=== PATIENT | male | born 1940 | race Caucasian/White ===

== ENCOUNTER 2018-10-06 11:13 | Observation (INO) | payer MEDICARE, BC ==
[2018-10-06] MEDS ORDERED: NS 0.9% 1000 ML** 1,000 ML IV ONE (11:29)
[2018-10-06] MEDS ORDERED: Diltiazem IV push/loading dose 5 MG/ML 5 ML vial (25 mg) IV PUSH ONE (11:29)
--- NOTE | 2018-10-06 11:31 | ED ---
Palpitations / Dysrhythmia - HPI Summary HPI Summary: Patient is a 78 y/o M presenting to ED with complaints of tachycardia. He was seen at [facility] by Dr. Bruno this morning for liver issues. LFTs are reported to have been normal. An EKG was done and the patient was found to be tachycardic. He notes that he had a similar episode of tachycardia around 1.5 months ago which had spontaneously resolved. 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 Patient states that he has not been taking any blood thinners. He also endorses experiencing SOB and dizziness but denies chest pain. , who is present in the room, states that the patient had a fall and head injury at back of right side four days ago. PMHx of HTN, white cell carcinoma. PSHx of mitral valve repair, FMHx of cardiac disease, patient drinks a cocktail daily, denies substance usage, he is a former smoker. Nothing is noted to aggravate/alleviate Sx. Home medications and allergies are reviewed. 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 - Onset/Duration: Sudden Onset, Lasting Hours, Lasting Weeks - patient had a prior episode around 1.5 months ago, Still Present Character: Fast Aggravating: Nothing Alleviating: Nothing Associated Signs & Symptoms: Dizzy, Shortness of Breath - Allergy/Home Medications Allergies/Adverse Reactions: Allergies Allergy/AdvReac Type Severity Reaction Status Date / Time haloperidol [From Haldol] Allergy Unknown Verified 10/06/18 11:18 Reaction Details Penicillins Allergy Unknown Verified 10/06/18 11:18 Reaction Details Home Medications: Home Medications Alfuzosin ER (NF) [Uroxatral (NF)] 10 mg PO BEDTIME 10/06/18 [History Confirmed 10/06/18] Ezetimibe TAB* [Zetia TAB*] 10 mg PO DAILY 10/06/18 [History Confirmed 10/06/18] HydroxyUREA CAP* [Hydrea CAP*] 500 mg PO MOTUWETHFR 10/06/18 [History Confirmed 10/06/18] Isosorbide Mononitrate ER TAB* [Imdur ER TAB*] 15 mg PO DAILY 10/06/18 [History Confirmed 10/06/18] Losartan TAB* [Cozaar TAB*] 25 mg PO DAILY 10/06/18 [History Confirmed 10/06/18] Silica Caps 1 cap PO DAILY 10/06/18 [History Confirmed 10/06/18] Vit A/Vit C/Vit E/Zinc/Copper [Preservision Areds Softgel] 1 cap PO BID [History Confirmed 10/06/18] levETIRAcetam [Levetiracetam ER] 2,000 mg PO DAILY 10/06/18 [History Confirmed 10/06/18] PMH/Surg Hx/FS Hx/Imm Hx Endocrine/Hematology History: Denies: Hx Diabetes Cardiovascular History: Reports: Hx Hypertension Denies: Hx Congestive Heart Failure, Hx Pacemaker/ICD, Other Cardiovascular Problems/Disorders Sensory History: Denies: Hx Hearing Aid Psychiatric History: Denies: Hx Panic Disorder - Cancer History Cancer Type, Location and Year: WHITE CELL CARCINOMA - Surgical History Surgery Procedure, Year, and Place: MITRAL VALVE. BOIL REMOVED FROM BILATERAL UNDER ARMS Infectious Disease History: No Infectious Disease History: Denies: Traveled Outside the [place] in Last 30 Days - Family History Known Family History: Positive: Cardiac Disease - Social History Alcohol Use: Daily Substance Use Type: Reports: None Hx Tobacco Use: Yes - OVER 30 YRS AGO Smoking Status (MU): Former Smoker Review of Systems Positive: Palpitations. Negative: Chest Pain Positive: Shortness Of Breath Neurological: Other - POSITIVE - DIZZINESS; HEAD INJURY FOUR DAYS AGO All Other Systems Reviewed And Are Negative: Yes Physical Exam - Summary Physical Exam Summary: VITAL SIGNS: Reviewed. GENERAL: Patient is a well-developed and nourished male who is lying comfortable in the stretcher. Patient is not in any acute respiratory distress. HEAD AND FACE: No signs of trauma. No ecchymosis, hematomas or skull depressions. No sinus tenderness. EYES: PERRLA, EOMI x 2, No injected conjunctiva, no nystagmus. EARS: Hearing grossly intact. Ear canals and tympanic membranes are within normal limits. MOUTH: Oropharynx within normal limits. NECK: Supple, trachea is midline, no adenopathy, no JVD, no carotid bruit, no c- spine tenderness, neck with full ROM. CHEST: Symmetric, no tenderness at palpation LUNGS: Clear to auscultation bilaterally. No wheezing or crackles. CVS: Tachycardic, irregularly irregular, S1 and S2 present, no murmurs or gallops appreciated. ABDOMEN: Soft, non-tender. No signs of distention. No rebound no guarding, and no masses palpated. Bowel sounds are normal. EXTREMITIES: FROM in all major joints, no edema, no cyanosis or clubbing. NEURO: Alert and oriented x 3. No acute neurological deficits. Speech is normal and follows commands. SKIN: Dry and warm Triage Information Reviewed: Yes Vital Signs On Initial Exam: Initial Vitals Temp Pulse Resp BP Pulse Ox 97.2 F 156 18 81/48 98 10/06/18 11:16 10/06/18 11:16 10/06/18 11:16 10/06/18 11:16 10/06/18 11:16 Vital Signs Reviewed: Yes Diagnostics - Vital Signs Vital Signs Temp Pulse Resp BP Pulse Ox 10/06/18 11:16 97.2 F 156 18 81/48 98 - Laboratory Result Diagrams: 10/07/18 05:40 10/07/18 05:40 Lab Statement: Any lab studies that have been ordered have been reviewed, and results considered in the medical decision making process. - Radiology CXR Radiology Interpretation Completed By: Radiologist Summary of Radiographic Findings: IMPRESSION: NO ACTIVE CARDIOPULMONARY DISEASE. THIS REPORT WAS REVIEWED BY DR. BRANCH. - EKG 1121 Cardiac Rate: Other Rate - afib with rate of 150 BPM EKG Rhythm: Atrial Fibrillation Summary of EKG Findings: EKG showed afib with rate of 150 BPM, RVR, inverted T waves in V5, V6. 1302 Cardiac Rate: NL - rate of 82 BPM EKG Rhythm: Sinus Rhythm Summary of EKG Findings: EKG showed sinus rhythm with rate of 83 BPM, no ST elevation, LBBB. Course/Dx - Course Assessment/Plan: This patient is a 78-year-old male who presents to the emergency department with a chief complaint of having palpitations, shortness of breath and dizziness. He reports that he went to see Dr. 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 Patient has no history of atrial fibrillation. He also reports that in the last couple weeks the patient has been having episodes where he his heart rate increases and becomes dizzy and usually resolves within minutes. Initially the patient was placed in a monitoring engineer, noticed that the patient had rate is increased therefore we decided to do an EKG. EKG shows an atrial fibrillation with RVR. We obtained an IV access and we gave the patient fluids since the blood pressure was on the low side. After fluids, blood pressure increased and the patient was given Cardizem 10 mg IV. The patient continues to have tachycardia, therefore the patient was placed in a Cardizem drip with IV fluids. Test results without any significant abnormality except for WBCs of 12.9, hemoglobin 12, hematocrit 38, platelets of 437. INR is 1.29 PTT is 35. Glucose 142, MB 349. Chest x-ray impression: No active cardiopulmonary disease. At this point the patient is more stable. The heart rate is 119 bpm. I discuss my physical exam, findings and test results with Dr. Soria from the hospitalist services and she agrees to admit patient to her services. Patient is hemodynamically stable alert and oriented x 3. - Diagnoses Provider Diagnoses: Atrial fibrillation with RVR - Physician Notifications Discussed Care Of Patient With: Keira Caldera Time Discussed With Above Provider: 12:33 Instructed by Provider To: Other - Patient's case was discussed with Dr. Caldera , Dr. Caldera accepts for admission. - Critical Care Time Critical Care Time: 75-104 min Discharge - Sign-Out/Discharge Documenting (check all that apply): Patient Departure - admit Patient Received Moderate/Deep Sedation with Procedure: No - Discharge Plan Condition: Stable Disposition: ADMITTED TO [facility] - Billing Disposition and Condition Condition: STABLE Disposition: Admitted to [facility] - Attestation Statements Document Initiated by Sarjo: Yes Documenting Scribe: CLINT ESTRADA Provider For Whom Saroj is Documenting (Include Credential): SANTA BRANCH MD Scribe Attestation: I, CLINT ESTRADA, scribed for SANTA BRANCH MD on 10/07/18 at 1051. Scribe Documentation Reviewed: Yes Provider Attestation: The documentation as recorded by the CLINT dean accurately reflects the service I personally performed and the decisions made by me, SANTA BRANCH MD Status of Scribe Document: Viewed
[2018-10-06 12:03] LABS: Activated Partial Thrombo Time 35.3 seconds (26.0-36.3); Hematocrit 38 % (42-52); INR 1.29 (0.82-1.09); Mean Corpuscular HGB Conc 32 g/dL (31-36); Mean Corpuscular Hemoglobin 29 pg (27-31); Mean Corpuscular Volume 92 fL (80-94); Platelet Count 437 10^3/uL (150-450); Red Blood Count 4.12 10^6 /uL (4.18-5.48); Red Cell Distribution Width 18 % (10.5-15); White Blood Count 12.9 10^3/uL (3.5-10.8)
[2018-10-06] MEDS ORDERED: Diltiazem IV VIAL* 125 MG in NS 0.9% 100 ML* 100 ML IVPB ONE (12:03)
[2018-10-06 12:07] LABS: Albumin/Globulin Ratio 1.5 (1-3); Calcium 9.3 mg/dL (8.6-10.3); EGFR African American 78.3 (>60); EGFR Non-African American 64.7 (>60); Globulin 2.7 g/dL (2-4); Magnesium 2.1 mg/dL (1.9-2.7); Potassium 3.7 mmol/L (3.5-5.0); Total Bilirubin 0.6 mg/dL (0.2-1.0); Total Protein 6.7 g/dL (6.4-8.9)
[2018-10-06 12:09] LABS: Troponin I 0.01 ng/mL (<0.04)
[2018-10-06 12:12] LABS: CKMB ng/mL 1.4 ng/mL (0.6-6.3)
[2018-10-06 12:41] LABS: ABS Neutrophils 4.1 10^3/ul (1.5-7.7); TSH (Thyroid Stimulating Horm) 1.37 mcIU/mL (0.34-5.60)
[2018-10-06] MEDS ORDERED: Metoprolol Succinate XL TAB* 50 MG PO ONE (13:27)
[2018-10-06] MEDS ORDERED: Acetaminophen TAB* 325 MG PO PRN (13:28)
[2018-10-06] MEDS ORDERED: Ondansetron INJ* 2 MG/ML VIAL IV PRN (13:28)
[2018-10-06] MEDS: HydroxyUREA CAP* 500 MG CAP PO SCH (15:43)
[2018-10-06] MEDS: Enoxaparin(*) 60 MG/0.6 ML SYR SUBCUT SCH (15:43)
[2018-10-06] MEDS ORDERED: Warfarin TAB(*) 5 MG PO SCH (17:00)
--- NOTE | 2018-10-06 17:17 | HP ---
CC: Dr. Riggs, [place]; Dr. Lei Osullivan; Dr. Alex Bruno * ADMISSION HISTORY AND PHYSICAL: DATE OF ADMISSION: 10/06/18 PRIMARY CARE PROVIDER: Dr. Riggs in [place]. MY ATTENDING WHILE IN THE HOSPITAL: Dr. Keira Caldera.* (DICTATED BY AVEL CONTEH) OUTPATIENT GLASS CURVATURE GAUGER: Dr. Lei Osullivan. OUTPATIENT CASTING MACHINE SERVICE OPERATOR/ONCOLOGIST: Dr. Alex Bruno. CHIEF COMPLAINT: Tachycardia. HISTORY OF PRESENT ILLNESS: Mr. 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 He then had to have a large bowel movement on the subsequent day requiring straining and strenuous activity afterwards and after that strenuous activity, the patient felt lightheaded, passed out, hit his head on the cabinet, woke up, was feeling okay; did not feel palpitations, chest pain, shortness of breath. The patient did have prodromal symptoms. The patient has not passed out in the recent past. The patient did not seek medical attention for this. The patient, however, did go to a routine appointment with his core sucker/oncologist today to discuss his CML treatment and was found to have a heart rate in the 140s with irregular rhythm. The patient at that time did feel some palpitations and felt somewhat dizzy. The patient had an episode approximately 6 weeks ago where he was woken from sleep, checked his pulse and it was in the 120s. He monitored it and it subsided on its own. The patient discussed this with his rn homecare and it was discussed that he would start anticoagulation; however, this was not started due to the lack of confirmation of AFib and his other comorbidities. The patient does not remember when the last time he had an echocardiogram for his valve replacement. The patient had 1 episode of bright red blood per rectum approximately 2 months ago related to hemorrhoids. The patient did have a subcutaneous blood clot about a month ago in his arm related to a bug bite. The patient in the emergency department was found to have a heart rate in the 160s, given diltiazem push bringing his heart rate down to the 120s. The patient's heart rate then went back up to 160s and before a diltiazem drip could be started, the patient spontaneously converted. Before this happened, the patient was having some slight shortness of breath not at rest, mainly with exertion while his heart rate was high and denied chest pain, had palpitations, denied lightheadedness. The patient has no functional limitations at baseline. The patient has no swelling in his legs, no difficulty breathing when lying flat, no nocturia. The patient had several recent car trips. He is on aspirin 325 mg daily. The patient did have a stress test in [place], which showed a possible region of remote ischemia consistent with missed heart attack. Due to concern for new-onset AFib, we were asked to evaluate the patient for admission to the hospital. 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 MEDICATIONS: 1. Alfuzosin 10 mg p.o. at bedtime. 2. 1 cap p.o. daily. 3. Aspirin 325 mg p.o. daily. 4. PreserVision 1 tab p.o. b.i.d. 5. Zetia 10 mg p.o. daily. 6. Hydroxyurea 500 mg p.o. Saturday, Saturday, Saturday, Saturday. 7. Imdur 15 mg p.o. daily. 8. Losartan 25 mg p.o. daily. 9. Keppra 2000 mg p.o. daily. ALLERGIES: HALDOL, PENICILLIN. FAMILY HISTORY: The patient's father of heart disease. The patient's mother young, unknown cause. The patient's brother recently of intraoperative complications. The patient had a brother who of dementia and another brother of an AK. SOCIAL HISTORY: The patient smoked for 15 years from 1959 to 1973 approximately a pack a day. The patient drinks approximately 2 beers daily. The patient denies illicit drug use. 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 The patient is and has 2 children. The patient's surrogate decision maker will be his son, Alex Mackenzie. REVIEW OF SYSTEMS: A 14-point review of systems was reviewed and is negative except as above in the HPI. PHYSICAL EXAMINATION GENERAL: The patient is a 78-year-old male, who appears stated age and sitting comfortably in bed, in no acute distress. VITAL SIGNS: At the time of evaluation, temperature 97.2, pulse rate 83, respiratory rate 17, oxygen saturation 98% on room air, blood pressure 112/56. HEENT: Head: Normocephalic, atraumatic. Sclerae anicteric. No conjunctival injection. Nasal mucosa moist. Oral mucosa moist. No pharyngeal erythema, discharge, or exudate. NECK: Supple, nontender. No lymphadenopathy. No carotid bruits auscultated. No JVD. RESPIRATORY: Clear to auscultation bilaterally. No wheezes, rales, or rhonchi. Good air exchange bilaterally. CARDIAC: Tachycardic. Grade 3/6 holosystolic murmur heard best at the apex. Irregular rate and rhythm. Pulses are 2+ in the bilateral dorsalis pedis, posterior tibialis, and radial areas. No bilateral lower extremity edema noted. ABDOMEN: Soft, nontender, nondistended. Bowel sounds present and normoactive in all 4 quadrants. No hepatosplenomegaly. No abdominal bruits auscultated. No hepatojugular reflux. GENITOURINARY: No suprapubic or CVA tenderness. NEURO: Cranial nerves II through XII intact. No focal deficits. Alert and oriented x3. PSYCHIATRIC: Pleasant and cooperative. SKIN: Clean, dry, and intact. No rash. Large well-healed scar on the thorax consistent with prior valve replacement. DIAGNOSTIC STUDIES/LAB DATA: White blood cell count 12.9, hemoglobin 12.0, platelet count 437. INR 1.29, APTT 35.3. Sodium 138, potassium 3.7, chloride 103, carbon dioxide 26, anion gap 9, BUN 22, creatinine 1.1, glucose 152, lactic acid 1.6, calcium 9.3, magnesium 2.1. Bilirubin 0.6, AST 30, ALT 35, alkaline phosphatase 79. Creatine kinase 42, CK-MB 1.4. Troponin I 0.01. BNP 349. Protein 6.7, albumin 4.0, globulin 2.7. TSH 1.37. Studies: Chest x-ray read as no active cardiopulmonary disease. EKG shows atrial fibrillation, rate of 150, QTc of 481, ST segment depressions with T-wave inversions in the lateral leads, left bundle branch block pattern. Compared to previous exam, there are numerous significant changes including development of left bundle branch block, atrial fibrillation replacing previously normal sinus rhythm. Repeat EKG shows continued atrial fibrillation , rate of 150, persistent ST and T-wave changes. Repeat EKG shows normal sinus rhythm, persistent T-wave inversions in V5 and V6, left ventricular hypertrophy , improvement in left bundle branch block pattern, possible left atrial enlargement. ASSESSMENT AND PLAN: Impression: Mr. Mackenzie is a 78-year-old male with a complex past medical history significant for mitral regurgitation, status post replacement; recent history of chronic myeloid leukemia; remote history of endocarditis; history of seizures; transient ischemic attack; and hypertension, who presents to the emergency department with rapid atrial fibrillation and a recent history of syncope, who was found to be in rapid atrial fibrillation, who spontaneously converted after 1 dose of diltiazem. The patient will be admitted to the hospital for rate control, echocardiogram, cardiology consultation, and initiation of anticoagulation. 1. Paroxysmal atrial fibrillation. The patient is currently in normal sinus rhythm. The patient was symptomatic from his atrial fibrillation. It is unclear whether his syncope was related to atrial fibrillation. He has episodes of tachycardia going back approximately 6 weeks. The patient is not on any rate controlling agents. The patient will be started on metoprolol succinate 25 mg p.o. daily. This can be uptitrated in case he continues to go in and out of atrial fibrillation with rapid rates and this should help slightly with rhythm control as well. This will be used in preference to diltiazem due to the patient's probable history of coronary artery disease. The patient will have an echocardiogram to assess functioning of his mitral valve. The patient is not a candidate for NOAC therapy due to this being possibly related to his mitral valve replacement. The patient will be started on Lovenox to bridge to Coumadin. The patient's case has been discussed with Dr. Lei Osullivan of Cardiology, who will see the patient in consultation. 2. Chronic myeloid leukemia. Continue the patient's hydroxyurea. The patient' s blood counts are not markedly abnormal and consistent with chronic myeloid leukemia. 3. History of coronary artery disease. The patient has a reported history of abnormal stress test indicating possible history of remote myocardial infarction. Continue the patient's Zetia and aspirin. It is unclear why the patient is not on statin therapy. We will defer this decision to the patient's rn homecare outpatient. Continue the patient's Imdur. 4. Hypertension. The patient is currently normotensive. The patient was hypotensive in the setting of tachycardia. Monitor the patient's blood pressure closely with initiation of rate control medications. 5. History of transient ischemic attack. This makes the patient high risk for thromboembolism. The patient's current CHADS-VASc score is 5. The patient will be full anticoagulated with Lovenox and bridged with Coumadin. 6. DVT prophylaxis: The patient is on full-dose Lovenox. 7. FEN: The patient will have a heart-healthy diet, caffeine okay. The patient does not need fluids at this time. 8. Disposition: The patient is admitted to observation to the hospital. TIME SPENT: Approximately 75 minutes was spent on the admission of this patient , 30 of which was spent [id number] with the patient obtaining history and physical and discussing treatment plan. This plan was discussed with my attending, Dr. Keira Caldera, and she is in agreement. AVEL CONTEH [id number]/[facility] #: [id number] HANG
[2018-10-06] MEDS ORDERED: Alfuzosin ER (NF) 10 MG TAB.ER PO SCH (21:00)
--- NOTE | 2018-10-07 00:04 | CONS ---
CARDIOLOGY CONSULTATION: DATE OF CONSULT: 10/06/18 INDICATION FOR CONSULTATION: Atrial fibrillation. HISTORY OF PRESENT ILLNESS: The patient is a 78-year-old gentleman well known to me from past consultations. He is a gentleman with a history of mitral valve endocarditis back in 2009. At that time, he underwent surgery and had a mitral valve replacement with #[address] bioprosthetic valve. The patient has been doing very well since then. The patient does have a history of CML. The patient moved to [place] about a year ago. He was up here visiting friends when he started noticing shortness of breath and palpitations. This started last , when he was out in the golf [place]. He continued throughout the weekend. He contacted Dr. Bruno from Oncology this morning and he was seen at Dr. Bruno's office. At that time, his EKG showed atrial fibrillation with rapid ventricular response. He was transferred to the emergency room. On arrival to the emergency room, he was in AFib with rapid ventricular response. He subsequently converted to normal sinus rhythm around 1 o'clock in the afternoon. On speaking with the patient right now, he has no specific complaints. He denies any chest pain or shortness of breath. No orthopnea or PND. No palpitations. No lightheadedness, dizziness or syncope. OUTPATIENT MEDICATIONS: 1. Losartan 25 mg a day. 2. Imdur 30 mg a day. 3. Hydroxyurea 500 mg daily. 4. Zetia 10 mg a day. 5. Aspirin 325 a day. 6. Uroxatral 10 mg a day. 7. Levitra 500 mg as needed. ALLERGIES: ALLOPURINOL and PENICILLIN. FAMILY HISTORY: Noncontributory. 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 Denies tobacco or alcohol use. He does get exercise on a regular basis. REVIEW OF SYSTEMS: Negative for fevers and chills. Negative for changes in bowel or bladder habits. Negative for changes in weight. Other 12-point review was unremarkable. PHYSICAL EXAM: Height is 5 feet 6 inches, weight 131 pounds, temperature 97, heart rate is 70, and blood pressure 128/41, respiratory rate is 20. Oxygen saturation 98% on room air. Sclerae anicteric. Oropharynx is pink without erythema. Carotids are 2+ without bruits. JVD is normal. Thyroid is normal. Cardiac Exam: S1 and S2 with a soft 1/6 systolic ejection murmur. No diastolic murmur. PMI is normal. Lungs are clear to auscultation bilaterally. There is no dullness to percussion. Abdomen is soft, nontender, and nondistended with normoactive bowel sounds. Extremities show no edema. He has 2 + pulses dorsalis pedis pulses throughout. The patient is awake, alert and oriented. He moves all 4 extremities equally. DIAGNOSTIC STUDIES/LAB DATA: CBC is within normal limits except for a white count of 12.9. Chemistries are within normal limits. BUN and creatinine are normal AST and ALT are normal. Troponins are negative. TSH 1.3. An echocardiogram today showed normal LV size with systolic function. His bioprosthetic mitral valve was functioning normally. He does have a moderate aortic regurgitation. This was essentially unchanged from his echocardiogram in 2013. IMPRESSION: This is a 78-year-old gentleman with a history of bioprosthetic mitral valve back in 2009. He was admitted to the hospital with atrial fibrillation. Again, he may have started with atrial fibrillation back on . The patient was seen in the emergency room. He was given IV Cardizem and converted to normal sinus rhythm. The patient states he had 1 episode of atrial fibrillation about 6 weeks ago that lasted about 2 hours. The patient has atrial fibrillation, not to be unexpected with the patient with a mitral valve replacement. My recommendation, the patient to be started on long-term anticoagulation because of his high risk of recurrent atrial fibrillation. Because of his mitral valve replacement, the patient should be placed on Coumadin. The patient will be given low dose beta-love, metoprolol 25 mg b.i.d. The patient does have a deputy controller in [place] now. He can follow up with that deputy controller and consider changing to anti-arrhythmic medication if it is necessary. [id number]/[facility] #: [id number] MTDD
[2018-10-07 04:18] LABS: Urine Appearance Cloudy; Urine Bacteria Absent (Absent); Urine Bilirubin Negative (Negative); Urine Blood Negative (Negative); Urine Color Yellow; Urine Glucose Negative (Negative); Urine Ketones Negative (Negative); Urine Nitrite Negative (Negative); Urine Protein 1+(30 mg/dL) (Negative); Urine Red Blood Cell Absent (Absent); Urine Specific Gravity 1.021 (1.010-1.030); Urine Urobilinogen Negative (Negative); Urine White Blood Cell Trace(0-5/hpf) (Absent)
[2018-10-07] MEDS ORDERED: Enoxaparin(*) 60 MG/0.6 ML SYR SUBCUT SCH (04:30)
[2018-10-07] MEDS: Enoxaparin(*) 60 MG/0.6 ML SYR SUBCUT SCH (05:10)
[2018-10-07 06:10] LABS: Hematocrit 34 % (42-52); Hemoglobin 10.8 g/dL (14.0-18.0); Mean Corpuscular HGB Conc 32 g/dL (31-36); Mean Corpuscular Hemoglobin 29 pg (27-31); Mean Corpuscular Volume 92 fL (80-94); Mean Platelet Volume 11.7 fL (7.4-10.4); Platelet Count 357 10^3/uL (150-450); Red Cell Distribution Width 17 % (10.5-15); White Blood Count 10.2 10^3/uL (3.5-10.8)
[2018-10-07 06:18] LABS: INR 1.53 (0.82-1.09)
[2018-10-07 06:33] LABS: BUN/Creatinine Ratio 22.5 (8-20); Calcium 8.6 mg/dL (8.6-10.3); EGFR Non-African American 82.7 (>60); Magnesium 1.9 mg/dL (1.9-2.7); Potassium 3.6 mmol/L (3.5-5.0)
[2018-10-07 06:43] LABS: ABS Neutrophils 2.1 10^3/ul (1.5-7.7); ABS Neutrophils 3.4 10^3/ul (1.5-7.7)
--- NOTE | 2018-10-07 08:52 | ECHO ---
*[facility]* [place] [address] Fax #: [phone] Transthoracic Echocardiogram Patient: Avril, Height: 66 in / Angelo Worthington 167.6 cm : 1940 Weight: 134.7 lb / Study Date: 10/06/2018 61.2 kg Age: 78 BP: 119 / 52 Gender: M BMI/BSA: 21.8 kg/m^2 HR: 68 bpm / 1.69 m^2 *Senior Interactive Developer: * Melanie Dutton [facility] RN *Referring Physician: * Foreign Hernández *Reading Physician: * Lei Osullivan MD Indications: Abnormal EKG. 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 Risk factors: Former tobacco use. Hypertension. Conclusions Summary: 1. Left ventricle: The cavity size is mildly dilated. Wall thickness is mildly increased. Systolic function is at the lower limits of normal. The estimated ejection fraction is 50-55%. There are no regional wall motion abnormalities. 2. Left atrium: The atrium is moderately to severely dilated. 3. Mitral valve: There is a porcine bioprosthetic mitral valve replacement. Normal function There is trace regurgitation. 4. Aortic valve: The annulus is mildly calcified. The valve is trileaflet. The leaflets are mildly thickened. There is moderate regurgitation. 5. Tricuspid valve: There is trivial regurgitation. 6. Pulmonic valve: There is mild regurgitation. 7. Pericardium, extracardiac: There is no pericardial effusion. 8. Impressions: Unchanged from the study of 11/24/2013. Study data: Transthoracic echocardiogram. Procedure: Transthoracic echocardiography was performed. Image quality was good. Complete 2D, spectral Doppler, and color flow Doppler. Patient status: Inpatient. Patient room number: 443-02. Comparison is made to the study of 11/24/2013. Rhythm: Normal sinus rhythm with PAC's. Findings Left ventricle: The cavity size is mildly dilated. Wall thickness is mildly increased. Systolic function is at the lower limits of normal. The estimated ejection fraction is 50-55%. There are no regional wall motion abnormalities. Doppler parameters are consistent with abnormal left ventricular relaxation (grade 1 diastolic dysfunction). Right ventricle: The cavity size is normal. Systolic function is normal. Left atrium: The atrium is moderately to severely dilated. Right atrium: The atrium is moderately to severely dilated. Mitral valve: There is a porcine bioprosthetic mitral valve replacement. There is tracel regurgitation. The valve area is 1.4 cm^2. The valve area index is 0.82 cm^2/m^2. The valve area by pressure half-time is 1.2 cm^2. The valve area index by pressure half-time is 0.7 cm^2/m^2. The valve area (LVOT continuity) is 1.4 cm^2. The valve area index (LVOT continuity) is 0.82 cm^2/m^2. The mean diastolic gradient is 10.0 mm Hg. The peak diastolic gradient is 13.0 mm Hg. Aortic valve: The annulus is mildly calcified. The valve is trileaflet. The leaflets are mildly thickened. The findings are consistent with very mild stenosis. There is moderate regurgitation. The LVOT to aortic valve VTI ratio is 0.77. The valve area by the velocity-time integral method is 2.40 cm^2. The valve area index by the velocity-time integral method is 1.42 cm^2/m^2. The ratio of LVOT to aortic valve peak velocity is 0.74. The valve area by the peak velocity method is 2.30 cm^2. The valve area index by the peak velocity method is 1.36 cm^2/m^2. The ratio of LVOT to aortic valve mean velocity is 0.68. The valve area by the mean velocity method is 2.1 cm^2. The valve area index by the mean velocity method is 1.26 cm^2/m^2. The mean systolic gradient is 9.0 mm Hg. The peak systolic gradient is 15.0 mm Hg. Tricuspid valve: The valve is structurally normal. There is no evidence of stenosis. There is trivial regurgitation. Pulmonic valve: The valve is structurally normal. There is no evidence of stenosis. There is mild regurgitation. The peak systolic gradient is 1.0 mm Hg. Aorta: Aortic root: The aortic root is not dilated. Ascending aorta: The ascending aorta is mildly dilated. Aortic arch: The aortic arch is not visualized. Pericardium: There is no pericardial effusion. Pulmonary arteries: The main pulmonary artery is normal-sized. Systemic veins: Inferior vena cava: The vessel is normal in size. The respirophasic diameter changes are in the normal range (>= 50%). Measurements Left ventricle Value Ref Right atrium Value Ref IMER, LAX 5.8 cm 4.2 - 5.8 ML dim, ES, A4C (H) 5.2 cm 2.6 - 4.4 ESD, LAX (H) 5.0 cm 2.5 - 4.0 SI dim, ES, A4C (H) 6.4 cm 3.4 - 5.3 FS, LAX (L) 13 % 25 - 43 PW, ED, LAX (H) 1.2 cm 0.6 - 1.0 Aortic valve Value Ref PW, ED (H) 1.2 cm 0.6 - 1.0 Harper diam, ED 2.1 cm --------- IVS/PW, ED 1.14 Peak v, S 1.95 m/sec --------- E', lat harper, TDI (L) 5.2 cm/sec >=10.0 Mean v, S 1.45 m/sec -- ------- E/e', lat harper, 35 VTI, S 47.1 cm ----- ---- TDI Mean grad, S 9.0 mm Hg --------- E', med harper, TDI (L) 4.9 cm/sec >=7.0 Peak grad, S 15.0 mm Hg -- ------- E/e', med harper, 37 LVOT/AV, VTI ratio 0.77 ----- ---- TDI CARRIE, VTI 2.40 cm^2 --------- E', avg, TDI 5.1 cm/sec CARRIE, Vmax 2.30 cm^2 ----- ---- E/e', avg, TDI (H) 36 <=14 AR peak v 3.69 m/sec -- ------- AR PHT 339 ms --------- LVOT Value Ref Diam, S 2.00 cm Mitral valve Value Ref Area 3.1 cm^2 Peak E 1.8 m/sec --------- Peak velvet, S 1.45 m/sec Peak A 1.3 m/sec --------- Mean velvet, S 0.99 m/sec Mean v, D 1.48 m/sec --------- VTI, S 36.3 cm Decel time 504 ms --------- Peak grad, S 8 mm Hg PHT 185 ms --------- Mean grad, S 5 mm Hg Mean grad, D 10.0 mm Hg --------- SV 114 ml Peak grad, D 13.0 mm Hg --------- Peak E/A ratio 1.38 --------- Ventricular septum Value Ref MVA, PHT 1.2 cm^2 --------- IVS, ED, LAX (H) 1.3 cm 0.6 - 1.0 Aortic root Value Ref Right ventricle Value Ref Root diam 3.5 cm <3.9 IMER, LAX 3.0 cm IMER minor ax, 3.3 cm 1.9 - 3.5 Ascending aorta Value Ref A4C mid AAo AP diam, S 3.6 cm --------- Left atrium Value Ref Inferior vena cava Value Ref AP dim, ES (H) 5.50 cm 3.00 - Diam 1.4 cm --------- 4.00 ML dim, A4C 5.6 cm SI dim, A4C 6.3 cm Vol/bsa, ES, 1-p (H) 95 ml/m^2 12 - 37 A4C Vol/bsa, ES, 1-p (H) 93 ml/m^2 11 - 43 A2C Vol/bsa, ES, A/L (H) 98 ml/m^2 16 - 34 Legend: (L) and (H) dustin values outside specified reference range. Prepared and electronically signed by Lei Osullivan MD 10/07/2018 08:51
[2018-10-07] MEDS ORDERED: Metoprolol Succinate XL TAB* 25 MG PO SCH (09:00)
[2018-10-07] MEDS ORDERED: SILICA PO SCH (09:00)
[2018-10-07] MEDS ORDERED: Isosorbide Mononitrate ER TAB* 30 MG PO SCH (09:00)
[2018-10-07] MEDS ORDERED: Multivitamins/Minerals TAB PO SCH (09:00)
[2018-10-07] MEDS ORDERED: Ezetimibe TAB* 10 MG PO SCH (09:00)
[2018-10-07] MEDS ORDERED: LEVETIRACETAM 500 MG PO SCH (09:00)
[2018-10-07] MEDS ORDERED: Losartan TAB* 25 MG PO SCH (09:00)
[2018-10-07] MEDS: HydroxyUREA CAP* 500 MG CAP PO SCH (09:45)
[2018-10-07 10:16] VITALS: BP 141/40
--- NOTE | 2018-10-07 22:03 | DS ---
CC: Dr. Riggs; Dr. Lei Osullivan * DISCHARGE SUMMARY: DATE OF ADMISSION: 10/06/18 DATE OF DISCHARGE: 10/07/18 PRIMARY CARE PROVIDER: Dr. Riggs in [place]. ATTENDING PHYSICIAN: Dr. Tatianna Camp * (dictated by Lula Ragsdale NP). PRIMARY DIAGNOSIS: 1. Atrial fibrillation with rapid ventricular response. SECONDARY DIAGNOSES: 1. Chronic myeloid leukemia. 2. Coronary artery disease. 3. Hypertension. STUDIES WHILE IN THE HOSPITAL: 1. EKG on 10/06/18 shows atrial fibrillation with rapid ventricular response and a rate of 150, QTc 481. 2. EKG on 10/06/18 shows atrial fibrillation with rapid ventricular response and a rate of 150, QTc 487. 3. Chest x-ray on 10/06/18 reads as: there is no active cardiopulmonary disease. 4. EKG on 10/06/18 shows normal sinus rhythm with a rate of 83, left bundle- branch block, QTc 456. HISTORY OF PRESENT ILLNESS AND HOSPITAL COURSE: Mr. Mackenzie is a 78-year-old male with a past medical history of mitral valve endocarditis, status post mitral valve replacement; CML; hypertension; subarachnoid hemorrhage and TIA, who presented to the emergency room on 10/06/18 with complaints of tachycardia. Please see the history and physical by AVEL Linares for complete summary of the events leading up to this hospitalization. In short, the patient resides in [place] and was up here visiting a friend. He had been feeling unwell for a few days and did have an episode of syncope. He had an appointment with his oncologist today and was found to have a heart rate in the 140s. At that time, he reported feeling palpitations and dizziness. He was directed to the emergency room. In the emergency room, he was noted to be in atrial fibrillation and rapid ventricular response. He had lab work which was essentially unremarkable. In the emergency room, he was given a dose of diltiazem IV and thereafter spontaneously converted back into normal sinus rhythm. Because of the concern for recurrence of rapid ventricular response, he was admitted by the Hospitalist service. Cardiology was consulted and at that time recommended anticoagulation. Because of the presence of a mitral valve replacement, the patient needed to be started on Coumadin. Dr. Osullivan from Cardiology also recommended starting the patient on metoprolol. The patient was monitored on telemetry overnight and had no further episodes of atrial fibrillation. I saw the patient this morning and he reported feeling well. He was anxious to return home. He reports that he can feel when he is in atrial fibrillation as he has some palpitations and shortness of breath, and he has been feeling well overnight. He does report that he has a flight back to [place] tomorrow and is anxious to return home. On exam, the heart has a regular rate and rhythm. There are no murmurs, rubs, or gallops. Lung sounds are clear. There are no rhonchi, wheezes, or rubs. Physical assessment is otherwise benign. The patient had been placed on therapeutic Lovenox here in the hospital to bridge to Coumadin. I will note that I did speak with Dr. Osullivan this morning who advised that the patient did not actually need to bridge as he was not currently in atrial fibrillation so the risk of thrombus at this point is quite low and that he could be discharged and started on Coumadin without further bridging. The patient did receive his first dose of Coumadin here in the hospital last night. Dr. Osullivan also recommended that the patient no longer take his daily aspirin. Mr. Mackenzie is stable for discharge today. Vital signs are as follows: Temp 97.8 , heart rate 61, respiratory rate 20, oxygen saturation 98% on room air, blood pressure 121/40. DISCHARGE MEDICATIONS: New medications: 1. Metoprolol succinate 25 mg p.o. daily. 2. Coumadin 5 mg p.o. daily. Continued medications: 1. Alfuzosin 10 mg p.o. at bedtime. 2. Zetia 10 mg p.o. daily. 3. Hydroxyurea 500 mg p.o. Saturday, Saturday, Saturday, , Saturday. 4. Isosorbide mononitrate 15 mg p.o. daily. 5. Levetiracetam 2000 mg p.o. daily. 6. Losartan 25 mg p.o. daily. 7. PreserVision 1 tab p.o. b.i.d. Discontinued medication: 1. Aspirin. DISCHARGE PLAN: Mr. Mackenzie will be discharged home. Activity will be as tolerated. Diet should be heart healthy. Medications are as above. The patient has been started on metoprolol for rate control. He additionally has been prescribed a small dose of Coumadin. 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 The patient does understand this and has already been in touch with his grocery supervisor back home. He will also need to follow up with his primary care provider in 4 to 7 days. He should return to the emergency room or nearest hospital for any worsening of symptoms, shortness of breath, lightheadedness, dizziness, chest discomfort, high fever, chills, night sweats, loss of consciousness, or any other worrisome signs or symptoms. DISCHARGE CONDITION: Stable. DISCHARGE DISPOSITION: Home. This is a summarized report of a complex medical history and hospital stay. For further details, please see the entire medical record. TIME SPENT: Approximately 40 minutes was spent on this discharge. LULA RAGSDALE NP [id number]/[facility] #: [id number] HANG
== END 2018-10-07 11:16 | disposition home or self-care (01) ==
LOC: ED 11:13 → MEDTELE 13:28
PROVIDERS: ADMIT Internal Medicine; ATTEND Hospitalist
DX: I48.0 Paroxysmal atrial fibrillation (principal); Z79.01 Long term (current) use of anticoagulants; C92.10 Chronic myeloid leukemia, BCR/ABL-positive, not having achieved remission; I25.10 Atherosclerotic heart disease of native coronary artery without angina pectoris; Z95.4 Presence of other heart-valve replacement; I10 Essential (primary) hypertension; I44.7 Left bundle-branch block, unspecified; R00.0 Tachycardia, unspecified; Z79.82 Long term (current) use of aspirin; Z88.0 Allergy status to penicillin; Z87.891 Personal history of nicotine dependence; R10.9 Unspecified abdominal pain; R17 Unspecified jaundice; Z86.73 Personal history of transient ischemic attack (TIA), and cerebral infarction without residual deficits; R06.02 Shortness of breath
CPT/HCPCS: 36415; 71045; 80048; 80053; 81003; 81015; 82550; 82553; 83605; 83735; 83880; 84443; 84484; 85025; 85610; 85730; 87086; 93005; 93306; 96372; 96374; 99214; 99285; A9270-GY; G0378; G0463; J1650